=== PATIENT | female | born 1980 | race Caucasian/White ===

== ENCOUNTER → 2019-03-21 | Outpatient (CLI) | payer BC ==
[2019-03-21 18:07] LABS: BASO % 0.3 % (0.0-1.0); EOS # 0.1 10^3/uL (0.0-0.5); EOS % 0.6 % (0.0-3.0); HEMATOCRIT 41.6 % (36.0-47.0); HEMOGLOBIN 13.7 g/dl (12.0-15.5); LYMPH # 2.5 10^3/uL (1.5-5.0); LYMPH % 25.9 % (24.0-44.0); MEAN CORPUSCULAR HEMOGLOBIN 30.3 pg (27.0-33.0); MEAN CORPUSCULAR HGB CONC 32.9 g/dl (32.0-36.5); MONO # 0.5 10^3/uL (0.0-0.8); MONO % 5.3 % (0.0-5.0); NEUTROPHILS # 6.6 10^3/uL (1.5-8.5); NEUTROPHILS % 67.5 % (36.0-66.0); PLATELET COUNT, AUTOMATED 318 10^3/uL (150-450); RED BLOOD COUNT 4.52 10^6/uL (4.00-5.40); WHITE BLOOD COUNT 9.7 10^3/uL (4.0-10.0)
[2019-03-21 20:27] LABS: CHLAMYDIA DNA AMPLIFICATION NEGATIVE (NEGATIVE); GC DNA AMPLIFICATION NEGATIVE (NEGATIVE)
[2019-03-24 11:33] LABS: HIV 1&2 SCREEN CENTAUR NEGATIVE (NEGATIVE); RUBELLA IgG QUALITATIVE IMMUNE (IMMUNE)
== END ==
LOC: M PLALAB 13:36
PROVIDERS: ATTEND Advanced Practice Midwife
DX: O34.211 Maternal care for low transverse scar from previous cesarean delivery (principal)

== ENCOUNTER → 2019-05-13 | Outpatient (CLI) | payer BC ==
--- NOTE | 2019-05-13 15:11 | REP ---
OB ULTRASOUND: Real-time sonographic evaluation of the gravid uterus is performed. There is a single living intrauterine gestation. The estimated gestational age is 20 weeks 0 days based on today's ultrasound measurements, [facility] 09/30/2019. BPD 47 mm = 20 weeks 2 days HC 177 mm = 20 weeks 1 day AC 151 mm = 20 weeks 2 days Femur length 32 mm = 19 weeks 6 days HC/AC ratio 1.17 within normal range 1.06-1.25. Estimated weight 334 grams, 54th percentile. Cervix is closed and measures 4.5 cm in length. heart rate 147 beats per minute. SEEN/GROSSLY UNREMARKABLE Lateral ventricles Yes Posterior fossa No Upper lip Yes Four-chamber heart Yes LVOT Yes RVOT Yes Stomach Yes Cord insertion Yes Three vessel cord Yes Kidneys Yes Bladder Yes Spine Yes position: Oblique with head toward the maternal right side. Placenta: Posterior and grade 0 with no previa or abruption. Amniotic fluid: Within normal limits. Inferior margin of the placenta is 3.7 cm from the internal cervical os.
== END ==
LOC: M WHC 13:03
PROVIDERS: ATTEND Advanced Practice Midwife
DX: O09.522 Supervision of elderly multigravida, second trimester (principal); Z3A.20 20 weeks gestation of pregnancy

== ENCOUNTER → 2019-06-06 | Outpatient (REF) | payer BC | LOC: M PLALAB 15:01 | PROVIDERS: ATTEND Specialist | DX: Z34.82 Encounter for supervision of other normal pregnancy, second trimester (principal) ==

== ENCOUNTER → 2019-06-24 | Outpatient (CLI) | payer BC ==
--- NOTE | 2019-06-25 01:51 | REP ---
Clinical: Anatomical evaluation. Comparison: 05/13/2019 . Findings: Examination demonstrates a single live intrauterine in breech presentation. motion is identified by technologist. Placenta is noted posterior and grade I without evidence for placenta previa or abruption. Amniotic fluid volume is normal. Cervix measures 3.1 cm in length and appears closed. No evidence for nuchal cord. Gestational age by first US 26 weeks 0 days with [facility] 09/30/2019 . Gestational age by current measurements 26 weeks 0-day with [facility] 09/30/2019 . FHR equals 163 beats per minute. Estimated weight 948 grams ( 59th percentile). Anatomical assessment demonstrates normal structures including cranium, choroid plexus, cavum, cerebellum/posterior fossa, facial features, lungs, diaphragm, stomach, three-vessel cord, kidneys/bladder, and extremities. Impression: Single live intrauterine in breech presentation demonstrating appropriate interval growth. In conjunction with prior examination anatomical assessment is complete and normal. No gross abnormalities are identified.
== END ==
LOC: M WHC 14:21
PROVIDERS: ATTEND Specialist
DX: Z36.2 Encounter for other antenatal screening follow-up (principal); O32.1XX0 Maternal care for breech presentation, not applicable or unspecified; Z3A.26 26 weeks gestation of pregnancy

== ENCOUNTER → 2019-06-24 | Outpatient (REF) | payer BC ==
[2019-06-24 17:54] LABS: HEMATOCRIT 36.7 % (36.0-47.0); HEMOGLOBIN 12.2 g/dl (12.0-15.5); MEAN CORPUSCULAR HGB CONC 33.2 g/dl (32.0-36.5); MEAN CORPUSCULAR VOLUME 93.1 fl (80.0-96.0); PLATELET COUNT, AUTOMATED 293 10^3/uL (150-450); RED BLOOD COUNT 3.94 10^6/uL (4.00-5.40); WHITE BLOOD COUNT 9.4 10^3/uL (4.0-10.0)
== END ==
LOC: M PLALAB 14:20
PROVIDERS: ATTEND Specialist
DX: Z34.82 Encounter for supervision of other normal pregnancy, second trimester (principal); Z3A.26 26 weeks gestation of pregnancy

== ENCOUNTER → 2019-07-14 | Outpatient (CLI) | payer BC | LOC: M LAB 07:55 | PROVIDERS: ATTEND Specialist | DX: Z34.80 Encounter for supervision of other normal pregnancy, unspecified trimester (principal) ==

== ENCOUNTER → 2019-09-09 | Outpatient (REF) | payer BC ==
[~2019-09-09] MED LIST: DOCU100C16 PO; IBUP80TA PO; PERCOCET PO
== END ==
LOC: M SFHCWAGY 11:49
PROVIDERS: ATTEND Specialist
DX: Z34.80 Encounter for supervision of other normal pregnancy, unspecified trimester (principal); Z3A.00 Weeks of gestation of pregnancy not specified

== ENCOUNTER → 2019-09-19 | Outpatient (REF) | payer BC ==
[2019-11-06 17:43] LABS: HEMATOCRIT 39.3 % (36.0-47.0); HEMOGLOBIN 12.9 g/dl (12.0-15.5); MEAN CORPUSCULAR HEMOGLOBIN 30.6 pg (27.0-33.0); MEAN CORPUSCULAR HGB CONC 32.8 g/dl (32.0-36.5); MEAN CORPUSCULAR VOLUME 93.1 fl (80.0-96.0); PLATELET COUNT, AUTOMATED 285 10^3/uL (150-450); RED BLOOD COUNT 4.22 10^6/uL (4.00-5.40); WHITE BLOOD COUNT 8.7 10^3/uL (4.0-10.0)
[2019-11-12 18:28] LABS: ALBUMIN 2.7 GM/DL (3.2-5.2); ALT/SGPT 22 U/L (12-78); BILIRUBIN,DIRECT < 0.1 MG/DL (0.0-0.2); BILIRUBIN,TOTAL 0.1 MG/DL (0.2-1.0); BLOOD UREA NITROGEN 6 MG/DL (7-18); CALCIUM LEVEL 8.8 MG/DL (8.5-10.1); CARBON DIOXIDE LEVEL 25 MEQ/L (21-32); CHLORIDE LEVEL 106 MEQ/L (98-107); CREATININE FOR GFR 0.59 MG/DL (0.55-1.30); GLOMERULAR FILTRATION RATE > 60.0 (>60); GLUCOSE, FASTING 80 MG/DL (70-100); POTASSIUM SERUM 4.5 MEQ/L (3.5-5.1); SODIUM LEVEL 138 MEQ/L (136-145); TOTAL PROTEIN 6.4 GM/DL (6.4-8.2)
== END ==
LOC: M SFHCWAGY 16:45
PROVIDERS: ATTEND Specialist
DX: O09.523 Supervision of elderly multigravida, third trimester (principal); Z11.59 Encounter for screening for other viral diseases
CPT/HCPCS: 36415; 80053; 82248; 85027; U0002

== ENCOUNTER 2019-09-23 04:50 | Inpatient (IN) | payer BC ==
[2019-09-23] MEDS ORDERED: ceFAZolin 2 GM/D5W 50 ML IV BAG (J0690 PER 500MG) As Ordered ONE (05:23)
[2019-09-23] MEDS ORDERED: BICITRA 30ML SOLN UDC As Ordered ONE (05:24)
[2019-09-23] MEDS ORDERED: MORPHINE PRES-FREE INJ 10 MG/10 ML VIAL (J2274) As Ordered ONE (07:50)
[2019-09-23] MEDS ORDERED: KETOROLAC 60MG 2ML VIAL As Ordered ONE (07:50)
[2019-09-23] MEDS ORDERED: ONDANSETRON 4MG/2ML VIAL As Ordered ONE (07:50)
[2019-09-23] MEDS ORDERED: OXYTOCIN INJ 10 UNITS/ML VIAL (J2590) As Ordered ONE (07:50)
[2019-09-23] MEDS ORDERED: ePHEDrine SULFATE 25 MG/5 ML(5MG/ML) SYRINGE As Ordered ONE (07:54)
[2019-09-23] MEDS ORDERED: OXYTOCIN 30 UNITS IN 0.9% NaCl 500ML IV BAG (J2590) As Ordered ONE (09:03)
[2019-09-23] MEDS ORDERED: KETOROLAC 30 MG/ML 1ML VIAL As Ordered ONE (14:50)
[2019-09-23] MEDS ORDERED: PERCOCET 5MG/325MG TAB PO PRN (19:15)
[2019-09-23] MEDS ORDERED: SLF 3 ML SYR IV PRN (19:15)
[2019-09-23] MEDS ORDERED: METHYLERGONOVINE MALEATE 0.2 MG/ML VIAL (J2210) IM PRN (19:15)
[2019-09-23] MEDS: DOCUSATE SODIUM 100 MG CAP PO SCH (21:15)
[2019-09-23] MEDS: KETOROLAC 30 MG/ML 1ML VIAL IV SCH (21:16)
[2019-09-23 22:00] VITALS: BP 132/78
[2019-09-23] MEDS: SLF 3 ML SYR IV SCH (22:00)
[2019-09-24 02:00] VITALS: BP 122/56
[2019-09-24] MEDS: KETOROLAC 30 MG/ML 1ML VIAL IV SCH (02:53)
[2019-09-24 06:00] VITALS: BP 105/66
[2019-09-24] MEDS: SLF 3 ML SYR IV SCH ×2 (06:17→11:09)
[2019-09-24 07:17] LABS: HEMATOCRIT 35.7 % (36.0-47.0); MEAN CORPUSCULAR HEMOGLOBIN 30.8 pg (27.0-33.0); MEAN CORPUSCULAR HGB CONC 33.1 g/dl (32.0-36.5); MEAN CORPUSCULAR VOLUME 93.2 fl (80.0-96.0); PLATELET COUNT, AUTOMATED 207 10^3/uL (150-450); RED BLOOD COUNT 3.83 10^6/uL (4.00-5.40); WHITE BLOOD COUNT 9.6 10^3/uL (4.0-10.0)
[2019-09-24 07:32] LABS: HEMOGLOBIN 11.8 g/dl (12.0-15.5)
[2019-09-24 07:37] LABS: HEMATOCRIT 41.9 % (36.0-47.0); HEMOGLOBIN 13.1 g/dl (12.0-15.5); MEAN CORPUSCULAR HEMOGLOBIN 31.2 pg (27.0-33.0); MEAN CORPUSCULAR HGB CONC 31.3 g/dl (32.0-36.5); MEAN CORPUSCULAR VOLUME 99.8 fl (80.0-96.0); PLATELET COUNT, AUTOMATED 251 10^3/uL (150-450); WHITE BLOOD COUNT 8.2 10^3/uL (4.0-10.0)
--- NOTE | 2019-09-24 08:01 | IPNPDOC ---
Progress Note Date of Service: Sep 24, 2019 Day#: 1 Progress Note SUBJECT: Doing well without complaints. Ambulating and pain is well-controlled. Reports minimal lochia. OBJECTIVE: VITAL SIGNS: Within normal limits, afebrile. Alert and oriented times three. Abdomen: Fundus firm at U-2. Soft, NTTP. Incision: Dressed Ext: neg calf tenderness. ASSESSMENT: Postoperative/ day #1 status post repeat section. Recovering in stable condition. PLAN: 1. Continue routine postoperative/ care 2. Discharge plans for tomorrow VS, I&O, 24H, Fishbone Vital Signs/I&O Vital Signs Date Time Temp Pulse Resp B/P (MAP) Pulse Ox O2 Delivery O2 Flow Rate FiO2 09/24/19 06:00 98.4 76 20 105/66 (79) 97 Room Air I&O- Last 24 Hours up to 6 AM 09/24/19 06:00 Intake Total 400 ml Balance 400 ml Laboratory Data 24H LABS Laboratory Tests 2 09/24/19 06:48: Nucleated Red Blood Cells % (auto) 0.0 CBC/BMP Laboratory Tests 09/24/19 06:48 DAVID BLACKBURN MD. Sep 24, 2019 08:01
[2019-09-24] MEDS: OMEPRAZOLE 20 MG CAP PO SCH (08:38)
[2019-09-24] MEDS: CETIRIZINE (ZyrTEC) 10 MG TAB PO SCH (08:38)
[2019-09-24] MEDS: DOCUSATE SODIUM 100 MG CAP PO SCH ×2 (08:38→20:24)
[2019-09-24 09:57] VITALS: BP 125/63
[2019-09-24] MEDS: IBUPROFEN 800 MG TAB PO SCH ×2 (11:01→18:25)
[2019-09-24 14:10] VITALS: BP 112/61
[2019-09-24 18:00] VITALS: BP 124/75
[2019-09-24 22:00] VITALS: BP 126/71
[2019-09-25 02:00] VITALS: BP 122/61
[2019-09-25] MEDS: IBUPROFEN 800 MG TAB PO SCH ×2 (02:09→11:00)
[2019-09-25 06:00] VITALS: BP 122/69
[2019-09-25] MEDS: PERCOCET 5MG/325MG TAB PO PRN ×2 (08:06→13:20)
[2019-09-25] MEDS: OMEPRAZOLE 20 MG CAP PO SCH (08:06)
[2019-09-25] MEDS: DOCUSATE SODIUM 100 MG CAP PO SCH (08:07)
[2019-09-25] MEDS: CETIRIZINE (ZyrTEC) 10 MG TAB PO SCH (08:07)
[2019-09-25] MEDS ORDERED: IBUP80TA PO (10:22)
[2019-09-25] MEDS ORDERED: PERCOCET PO (10:22)
[2019-09-25] MEDS ORDERED: DOCU100C16 PO (10:22)
--- NOTE | 2019-09-25 10:33 | DS.PDOC ---
Discharge Summary General Date of Admission Sep 23, 2019 at 04:50 Date of Discharge 09/25/2019 Attending Physician: DAVID BLACKBURN MD. Discharge Summary PROCEDURES PERFORMED DURING STAY: 1. Spinal anesthesia. 2. section ADMITTING DIAGNOSES: 1. History of previous section. 2. Gestational Hypertension DISCHARGE DIAGNOSES: 1. Repeat section. 2. Gestational Hypertension COMPLICATIONS/CHIEF COMPLAINT: Previous Section. HISTORY OF PRESENT ILLNESS: At 38-year-old 2, para 1 who presents at 39 weeks for scheduled section. She had a history significant for previous section. She underwent uncomplicated section. She did well post operatively and by postoperative day #2, had met all discharge criteria and was discharge home in stable condition.. HOSPITAL COURSE: Uncomplicated. DISCHARGE MEDICATIONS: Please see below. ALLERGIES: Please see below. PHYSICAL EXAMINATION ON DISCHARGE: VITAL SIGNS: Please see below. GENERAL:. Well-appearing ABDOMINAL EXAMINATION: Soft, appropriately tender. Her incision was dressed EXTREMITIES: Negative calf tenderness NEUROLOGICAL EXAMINATION: Grossly intact PSYCHIATRIC EXAMINATION:. Appropriate LABORATORY DATA: Please see below. ACTIVITY: Pelvic rest for 6 weeks. DIET: Ago DISCHARGE PLAN: Home DISPOSITION: Home. DISCHARGE INSTRUCTIONS: 1. Follow up in 2 weeks for incision check appointment. 2. Reports severe pain, heavy vaginal bleeding, fever, or incisional issues. 3. Remove dressing 5-7 days DISCHARGE CONDITION: Stable. Vital Signs/I&Os Vital Signs Date Time Temp Pulse Resp B/P (MAP) Pulse Ox O2 Delivery O2 Flow Rate FiO2 09/25/19 08:06 18 Room Air 09/25/19 06:00 97.5 70 122/69 (86) 96 Discharge Medications Scheduled Docusate Sodium (Docusate Sodium) 100 Mg Capsule, 100 MG PO BID Ibuprofen (Ibuprofen) 800 Mg Tablet, 800 MG PO Q8H Scheduled PRN Oxycodone/Acetaminophen (Oxycodone-Acetaminophen 5-325) 1 Each Tablet, 1-2 TAB PO Q6HP PRN for MODERATE PAIN Allergies Coded Allergies: gluten (Verified Allergy, Unknown, 09/23/19) DAVID BLACKBURN MD. Sep 25, 2019 10:33
--- NOTE | 2019-11-13 13:39 | RO ---
DATE OF OPERATION: 09/23/2019 PREOPERATIVE DIAGNOSES: Intrauterine at 39 plus weeks. Gestational hypertension. History of prior section for a repeat section. POSTOPERATIVE DIAGNOSES: Intrauterine at 39 plus weeks. Gestational hypertension. History of prior section for a repeat section. PROCEDURE PERFORMED: Repeat section. SURGEON: Erika Dent MD RECEIVING WEIGHER: Jessy Aldana CNM ANESTHESIA: Spinal. ESTIMATED BLOOD LOSS: 600 mL. INTRAVENOUS FLUIDS: 1700 mL. PREOPERATIVE ANTIBIOTICS: 2 grams Ancef. URINE OUTPUT: 400 mL. OPERATIVE FINDINGS: Live born female infant 9 and 9. Weight was 3810 grams or 8 pounds 6 ounces. SPECIMEN: None. DESCRIPTION OF PROCEDURE: After informed consent was obtained and requisite was reviewed, the patient was brought to the operating room where spinal anesthesia was placed. She was then placed in the supine position with a left lateral tilt. A Lopes catheter was placed and set to gravity. She was then prepped and draped in a normal sterile fashion. A time-out in the operating room was then performed identifying the patient, procedure to be performed, as well as drug allergies. Anesthesia was tested and deemed to be adequate. A Pfannenstiel skin incision was then made along the previous skin incision and this was extended down to the underlying rectus fascia. The fascia was scored and this incision was extended bilaterally. The fascia was then dissected off the underlying rectus muscles both superiorly and inferiorly. The rectus muscles were then in the midline. The peritoneum was then entered sharply. A Mobius retractor was then placed. The vesicouterine peritoneum was then tented and sliced to create a bladder flap to create a bladder flap. Curvilinear incision was then made in the lower uterine segment. Amniotomy was performed productive of clear fluid. The head was brought to the level of the incision atraumatically and was delivered along with shoulders and corpus. The cord was clamped x2 and was cut. The infant was taken over to the warmer with a good cry. The placenta was then drained and delivered grossly intact. The uterus was then cleared of all clots and debris. The uterine incision was closed in two layers using 0-Vicryl first in a running locking fashion followed by a second layer for imbrication in a running nonlocking fashion. The abdomen was then irrigated and suctioned. The vesicouterine peritoneum was then reapproximated with 3-0 Vicryl. The rectus muscles were then closed with 3-0 Vicryl. The fascia was then closed with 0- Vicryl in a running nonlocking fashion. The subcutaneous tissue was then irrigated and suctioned. The subcutaneous tissue was then reapproximated with 3- 0 Vicryl. Several dermal stitches were placed with 3-0 Vicryl and the skin was closed with 4-0 Monocryl in a subcuticular fashion. The incision was clean and dry and was dressed. The patient was taken to recovery in stable condition. Counts were correct. The couple has decided to name their daughter Kaya Reynolds. Jessy Aldana CNM my assistant professor nurse education played an essential role during the surgery. She assisted with tissue identification and retraction, delivery of the , as well as wound closure. EVELIO
== END 2019-09-25 13:23 | disposition home or self-care (01) | DRG 540 ==
LOC: M OBS 04:50
PROVIDERS: ADMIT Specialist; ATTEND Specialist
PROC: 10D00Z1 Extraction of Products of Conception, Low, Open Approach (ICD-10-PCS; principal; 2019-09-23)
DX: O34.211 Maternal care for low transverse scar from previous cesarean delivery (principal); Z37.0 Single live birth; Z3A.39 39 weeks gestation of pregnancy; O13.4 Gestational [pregnancy-induced] hypertension without significant proteinuria, complicating childbirth

== ENCOUNTER → 2019-10-16 | Outpatient (REF) | payer BC | LOC: M WHC 16:00 | PROVIDERS: ATTEND Obstetrics & Gynecology | DX: O86.01 Infection of obstetric surgical wound, superficial incisional site (principal) ==

== ENCOUNTER → 2020-02-26 | Outpatient (REF) | payer BC | LOC: M SFHCWAGY 13:40 | PROVIDERS: ATTEND Advanced Practice Midwife | DX: Z12.4 Encounter for screening for malignant neoplasm of cervix (principal); R87.610 Atypical squamous cells of undetermined significance on cytologic smear of cervix (ASC-US) | CPT/HCPCS: 87624; G0123 ==

== ENCOUNTER → 2022-09-06 | Outpatient (CLI) | payer BC | LOC: M WHC 14:12 | PROVIDERS: ATTEND Advanced Practice Midwife | DX: Z12.31 Encounter for screening mammogram for malignant neoplasm of breast (principal) ==

== ENCOUNTER → 2023-03-13 | Outpatient (CLI) | payer BC ==
[~2023-03-13] MED LIST changes: +PROHANCE 279.3MG/ML 15ML VIAL As Ordered ONE
== END ==
LOC: M RAD 14:33
PROVIDERS: ATTEND Advanced Practice Midwife
DX: R92.343 Mammographic extreme density, bilateral breasts (principal); Z80.3 Family history of malignant neoplasm of breast

== ENCOUNTER → 2023-11-21 | Outpatient (CLI) | payer BC ==
[~2023-11-21] MED LIST changes: -PROHANCE 279.3MG/ML 15ML VIAL As Ordered ONE
== END ==
LOC: M WHC 10:22
PROVIDERS: ATTEND Advanced Practice Midwife
DX: Z12.31 Encounter for screening mammogram for malignant neoplasm of breast (principal)

== ENCOUNTER → 2023-11-21 | Outpatient (REF) | payer BC ==
[2023-11-23 14:36] LABS: HPV APTIMA Not Detected (Not Detected)
== END ==
LOC: M PLALAB 07:37
PROVIDERS: ATTEND Advanced Practice Midwife
DX: Z12.4 Encounter for screening for malignant neoplasm of cervix (principal)
CPT/HCPCS: 87624; G0123

== ENCOUNTER → 2024-11-26 | Outpatient (CLI) | payer BC | LOC: M WHC 09:20 | PROVIDERS: ATTEND Advanced Practice Midwife | DX: Z12.31 Encounter for screening mammogram for malignant neoplasm of breast (principal); R92.333 Mammographic heterogeneous density, bilateral breasts ==